=== PATIENT | male | born 1970 | race African-American/Black ===

== ENCOUNTER 2020-12-17 00:30 | Inpatient (IN) ==
[2020-12-17] MEDS ORDERED: KETOROLAC 30 MG/1 ML VIAL IV STA (00:54)
[2020-12-17] MEDS ORDERED: SODIUM CHLORIDE 0.9% 1,000 ML IV STA (00:54)
[2020-12-17] MEDS ORDERED: ONDANSETRON 4 MG/2 ML VIAL IV ONE (00:57)
[2020-12-17] MEDS ORDERED: MORPHINE 4 MG/1 ML VIAL IV STA (01:05)
[2020-12-17] MEDS ORDERED: fentaNYL 100 MCG/2 ML VIAL ONE ×2 (01:40→03:25)
[2020-12-17] MEDS ORDERED: MIDAZOLAM 2 MG/2 ML VIAL ONE (01:40)
[2020-12-17] MEDS ORDERED: propofoL 200 MG/20 ML VIAL IV ONE (01:40)
[2020-12-17] MEDS ORDERED: LIDOCAINE 2% 5 ML VIAL ONE (01:40)
[2020-12-17] MEDS ORDERED: ROCURONIUM 50 MG/5 ML VIAL IV ONE (01:40)
[2020-12-17 01:41] LABS: Basophils % 0.2 % (0.0-0.8); Eosinophils % 0.1 % (0.00-10.9); Hematocrit 39.3 VOL% (42.0-52.0); Hemoglobin 12.9 GM/DL (14.0-18.0); Immature Granulocytes % 0.5 %; Immature Granulocytes Absolute 0.06 #; Lymphocytes # 1.5 10*3/uL (1.4-4.0); Lymphocytes % 13.3 % (21.2-54.2); Mean Corpuscular HGB Conc 32.8 GM/DL (32-36); Mean Corpuscular Volume 77.8 FL (87-102); Mean Platelet Volume 9.1 FL (9.6-12.0); Monocytes % 7.6 % (1.7-12.7); Neutrophils % 78.3 % (38.7-73.9); Platelet Count 481 T/CUMM (130-400); Red Blood Count 5.05 MC/CUMM (3.8-5.5); Red Cell Distribution Width 14.4 % (9.3-17.3); White Blood Count 10.9 T/CUMM (4-12)
[2020-12-17] MEDS ORDERED: ONDANSETRON 4 MG/2 ML VIAL ONE (01:41)
[2020-12-17] MEDS ORDERED: SEVOFLURANE 1 UNIT/15 MINUTE INH ONE ×7 (01:41→03:24)
[2020-12-17 01:59] LABS: Alanine Aminotransferase 14 U/L (16-61); Albumin 3.8 G/DL (3.4-5.0); Alkaline Phosphatase 65 U/L (45-117); Aspartate Amino Transferase 12 U/L (0-37); Bilirubin,Total < 0.39 MG/DL (0.2-1.0); Blood Urea Nitrogen 20 MG/DL (7-18); Calcium 8.8 MG/DL (8.5-10.1); Carbon Dioxide 29 MMOL/L (21-32); Estimated Glom Filtration Rate 129 ML/MIN; Glucose 92 MG/DL (74-106); Osmolality,Calculated 283.3 MOS/KG (273-304); Potassium 3.4 MMOL/L (3.5-5.1); Sodium 141 MMOL/L (136-145); Total Protein 7.5 G/DL (6.4-8.2)
[2020-12-17] MEDS ORDERED: PHENYLEPHRINE 1 MG/10 ML SYRINGE IV ONE (02:16)
[2020-12-17] MEDS ORDERED: DEXAMETHASONE 4 MG/1 ML VIAL ONE (02:17)
[2020-12-17 02:32] LABS: Bilirubin,Urine Negative (Negative); Blood, Urine Negative (Negative); Glucose,Urine (UA) Negative (Negative); Ketones,Urine Negative (Negative); Mucus,Urine Many /LPF (Occasional); Nitrite,Urine Negative (Negative); Protein,Urine 30 MG/DL; RBC,Urine 37 /HPF (0-4); Urine Appearance Slightly Hazy (Clear); Urine Color Yellow (Yellow); Urine Specific Gravity 1.036 (1.001-1.035)
[2020-12-17] MEDS ORDERED: LACTATED RINGERS 1,000 ML IV ONE (02:48)
[2020-12-17] MEDS ORDERED: GLYCOPYRROLATE 0.4 MG/2 ML VIAL ONE (03:23)
[2020-12-17] MEDS ORDERED: NEOSTIGMINE 10 MG/10 ML VIAL ONE (03:24)
[2020-12-17] MEDS ORDERED: TISSUE ADHESIVE 1 EACH APPLICATOR TOP ONE (03:34)
[2020-12-17] MEDS ORDERED: LABETALOL 20 MG/4 ML SYRINGE IV ONE ×2 (04:04→04:18)
[2020-12-17] MEDS ORDERED: ONDANSETRON 4 MG/2 ML VIAL IV PRN (04:14)
[2020-12-17] MEDS: HYDROmorphone 2 MG/1 ML VIAL IV PRN ×7 (04:16→19:59)
[2020-12-17] MEDS ORDERED: PROMETHAZINE 25 MG/1 ML VIAL IM PRN (04:54)
[2020-12-17 05:28] LABS: Basophils % 0.1 % (0.0-0.8); Hematocrit 33.4 VOL% (42.0-52.0); Immature Granulocytes % 0.7 %; Immature Granulocytes Absolute 0.07 #; Lymphocytes # 0.9 10*3/uL (1.4-4.0); Lymphocytes % 8.5 % (21.2-54.2); Mean Corpuscular HGB Conc 32.9 GM/DL (32-36); Mean Corpuscular Volume 77.5 FL (87-102); Monocytes % 3.6 % (1.7-12.7); Neutrophils % 87.1 % (38.7-73.9); Platelet Count 421 T/CUMM (130-400); Red Blood Count 4.31 MC/CUMM (3.8-5.5); Red Cell Distribution Width 14.1 % (9.3-17.3); White Blood Count 10.1 T/CUMM (4-12)
[2020-12-17] MEDS: LACTATED RINGERS 1,000 ML IV SCH ×3 (05:37→23:34)
[2020-12-17] MEDS: KETOROLAC 15 MG/1 ML VIAL IV SCH ×4 (05:37→23:33)
[2020-12-17 05:51] LABS: Osmolality,Calculated 285.1 MOS/KG (273-304)
[2020-12-17] MEDS ORDERED: MAGNESIUM SULF RIDER 4 GM/100 ML PREMIX IV PRN (07:38)
[2020-12-17] MEDS ORDERED: MAGNESIUM SULF RIDER 2 GM/50 ML PREMIX IV PRN (07:38)
[2020-12-17] MEDS: PANTOPRAZOLE 40 MG VIAL IV SCH (09:14)
[2020-12-17] MEDS: POTASSIUM CHLORIDE 20 MEQ TABLET PO PRN ×3 (09:16→11:32)
[2020-12-17] MEDS: ONDANSETRON 4 MG/2 ML VIAL IV PRN (13:36)
[2020-12-17] MEDS: SIMETHICONE CHEW 80 MG TABLET PO SCH ×2 (17:00→22:03)
[2020-12-17] MEDS: ENOXAPARIN 40 MG/0.4 ML SYRINGE SUBCUT SCH (22:03)
[2020-12-18] MEDS: HYDROmorphone 2 MG/1 ML VIAL IV PRN ×4 (02:38→20:23)
[2020-12-18 04:49] LABS: Basophils % 0.3 % (0.0-0.8); Eosinophils % 0.2 % (0.00-10.9); Hematocrit 29.4 VOL% (42.0-52.0); Hemoglobin 9.9 GM/DL (14.0-18.0); Immature Granulocytes % 0.7 %; Immature Granulocytes Absolute 0.07 #; Lymphocytes # 1.7 10*3/uL (1.4-4.0); Lymphocytes % 16.5 % (21.2-54.2); Mean Corpuscular HGB Conc 33.7 GM/DL (32-36); Mean Corpuscular Volume 77.8 FL (87-102); Mean Platelet Volume 9.2 FL (9.6-12.0); Monocytes % 7.1 % (1.7-12.7); Neutrophils % 75.2 % (38.7-73.9); Platelet Count 344 T/CUMM (130-400); Red Blood Count 3.78 MC/CUMM (3.8-5.5); Red Cell Distribution Width 14.2 % (9.3-17.3); White Blood Count 10.2 T/CUMM (4-12)
[2020-12-18 05:11] LABS: Osmolality,Calculated 278.5 MOS/KG (273-304); Potassium 3.8 MMOL/L (3.5-5.1)
[2020-12-18] MEDS: KETOROLAC 15 MG/1 ML VIAL IV SCH ×4 (05:23→22:08)
[2020-12-18] MEDS: LACTATED RINGERS 1,000 ML IV SCH ×2 (08:54→17:06)
[2020-12-18] MEDS: ONDANSETRON 4 MG/2 ML VIAL IV PRN (08:56)
[2020-12-18] MEDS: PANTOPRAZOLE 40 MG VIAL IV SCH (08:58)
[2020-12-18] MEDS ORDERED: SIMETHICONE CHEW 80 MG TABLET PO PRN (09:00)
[2020-12-18] MEDS: ENOXAPARIN 40 MG/0.4 ML SYRINGE SUBCUT SCH (22:08)
[2020-12-19] MEDS: LACTATED RINGERS 1,000 ML IV SCH ×3 (00:42→18:02)
[2020-12-19] MEDS: HYDROmorphone 2 MG/1 ML VIAL IV PRN ×5 (02:40→20:32)
[2020-12-19] MEDS: KETOROLAC 15 MG/1 ML VIAL IV SCH ×4 (04:36→21:54)
[2020-12-19 05:51] LABS: Basophils % 0.4 % (0.0-0.8); Eosinophils % 0.4 % (0.00-10.9); Hematocrit 27.1 VOL% (42.0-52.0); Hemoglobin 8.7 GM/DL (14.0-18.0); Immature Granulocytes % 0.5 %; Immature Granulocytes Absolute 0.05 #; Lymphocytes # 1.4 10*3/uL (1.4-4.0); Lymphocytes % 15.2 % (21.2-54.2); Mean Corpuscular HGB Conc 32.1 GM/DL (32-36); Mean Corpuscular Volume 78.8 FL (87-102); Mean Platelet Volume 9.3 FL (9.6-12.0); Monocytes % 7.6 % (1.7-12.7); Neutrophils % 75.9 % (38.7-73.9); Platelet Count 337 T/CUMM (130-400); Red Blood Count 3.44 MC/CUMM (3.8-5.5); White Blood Count 9.2 T/CUMM (4-12)
[2020-12-19 06:10] LABS: Osmolality,Calculated 271.8 MOS/KG (273-304); Potassium 3.4 MMOL/L (3.5-5.1)
[2020-12-19 06:58] LABS: Hypochromasia 1+; Microcytosis 1+; Target Cells Slight
[2020-12-19 06:59] LABS: Platelet Estimate Normal
[2020-12-19] MEDS: PANTOPRAZOLE 40 MG VIAL IV SCH (08:54)
[2020-12-19] MEDS: POTASSIUM CHLORIDE 20 MEQ TABLET PO PRN ×3 (11:22→14:40)
[2020-12-19] MEDS: ONDANSETRON 4 MG/2 ML VIAL IV PRN (14:39)
[2020-12-19] MEDS: ENOXAPARIN 40 MG/0.4 ML SYRINGE SUBCUT SCH (21:43)
[2020-12-20] MEDS: LACTATED RINGERS 1,000 ML IV SCH (00:11)
[2020-12-20] MEDS: HYDROmorphone 2 MG/1 ML VIAL IV PRN ×5 (00:27→13:55)
[2020-12-20] MEDS: PANTOPRAZOLE 40 MG VIAL IV SCH (09:55)
[2020-12-20 18:38] VITALS: BP 130/85
== END 2020-12-20 17:49 | disposition home or self-care (01) | DRG 351 ==
LOC: N.ED 00:30 → N.EDINP 01:51 → N.4E 01:51
PROVIDERS: ADMIT Surgery; ATTEND Surgery